=== PATIENT | female | born 1990 | race African-American/Black ===

== ENCOUNTER 2023-10-06 13:09 | Emergency (ER) | payer MEDICAID, OTHER ==
[~2023-10-06] VITALS: Ht 170.2 cm; Wt 70.1 kg
[2023-10-06 13:35] VITALS: PULSE 117; RESP 20; O2SAT 100
[2023-10-06] MEDS: SODIUM CHLORIDE 0.9% 1,000 ML IV ONE (13:47)
[2023-10-06] MEDS: ACETAMINOPHEN 500 MG TAB PO ONE (13:59)
[2023-10-06 15:12] LABS: Rapid Influenza A Negative (Negative); Rapid Influenza B Negative (Negative); Rapid Strep A Screen-Throat Positive
[2023-10-06 15:14] LABS: COVID19 ANTIGEN SOFIA FIA NEGATIVE (NEGATIVE)
[2023-10-06] MEDS ORDERED: ACET-6 PO (16:34)
[2023-10-06] MEDS ORDERED: BENZ200C64 PO (16:34)
[2023-10-06] MEDS ORDERED: AMOX875T4 PO (16:34)
[2023-10-06 16:59] VITALS: BP 132/85; PULSE 113; RESP 20; TEMP 98.3; O2SAT 98
[2023-10-06] MEDS: AMOXICILLIN/CLAVUL 875 MG TAB PO ONE (17:04)
[2023-10-07] MEDS ORDERED: AZITTAB PO (10:59)
== END 2023-10-06 17:08 | disposition home or self-care (01) ==
LOC: ER 13:09
DX: J02.0 Streptococcal pharyngitis (principal); Z79.899 Other long term (current) drug therapy; Z20.822 Contact with and (suspected) exposure to COVID-19
CPT/HCPCS: 36415; 87426; 87804; 87880; 96360; 99285; J7030